=== PATIENT | male | born 1970 | race Caucasian/White ===

== ENCOUNTER 2021-01-24 17:01 | Emergency (ER) | payer SELFPAY ==
[2021-01-24 17:19] VITALS: BP 144/84; PULSE 80; RESP 16; TEMP 36.8; O2SAT 99
--- NOTE | 2021-01-24 20:17 | PC.NURSE ---
no answer x2 at triage
== END 2021-01-24 20:17 | disposition left against medical advice (07) ==
DX: Z53.21 Procedure and treatment not carried out due to patient leaving prior to being seen by health care provider (principal)
CPT/HCPCS: 99199

== ENCOUNTER 2023-04-02 22:08 | Inpatient (IN) | payer BC, SELFPAY ==
[2023-04-02] VITALS (18 sets, daily range): BP systolic 68–103; BP diastolic 47–68; PULSE 78–103; RESP 13–21; O2SAT 98–100
--- NOTE | ~2023-04-02 | CT_ITS ---
EXAMINATION: CT brain wo con INDICATION: Headache COMPARISON: None TECHNIQUE: Standard unenhanced head CT. The dose-length product (DLP) was 756.67 mGy-cm. The mA was a djusted according to patient size. Iterative reconstruction technique was employed. FINDINGS: No intracranial hemorrhage, acute infarction, or abnormal mass lesion. The ventricles are n ormal. No abnormal mass effect or midline shift. The wilson-white matter differentiation is normal. The basal cisterns are patent. The orbits are normal. There is mild mucosal thickening of the paranasal sinuses. IMPRESSION: 1. No acute intracranial abnormality. Reviewed, dictated and finalized at location F.
--- NOTE | ~2023-04-02 | XR_ITS ---
XR chest 1V portable 04/04/2023 05:34 Indication: Respiratory distress. Procedure: AP portable chest Comparison: Comparison to multiple prior studies sequentially, with oldest reviewed study dated 03/16. Findings: Endotracheal tube tip 3.9 cm above the facundo. NG tube in the stomach. Heart size normal. N o focal air space disease, pulmonary edema, pleural effusion or suspected pneumothorax. No acute osse ous abnormality. Impression: 1: No acute cardiopulmonary disease. Reviewed, dictated and finalized at location A. Impression: 1: No acute cardiopulmonary disease.
--- NOTE | ~2023-04-02 | XR_ITS ---
Portable chest x-ray Comparison: 04/02/2023 Clinical History: Tube placement Findings: Endotracheal tube and NG tube are in satisfactory positions. Probable minimal perihilar lopes ziness. Cardiomediastinal silhouette is stable. Bones and soft tissues are unremarkable. Impression: Support tubes, as above. Minimal perihilar haziness, nonspecific. Reviewed, dictated and finalized at location . Impression: Support tubes, as above. Minimal perihilar haziness, nonspecific.
--- NOTE | ~2023-04-02 | XR_ITS ---
EXAMINATION: XR abdomen gastric tube insert INDICATION: Nasogastric tube placement. TECHNIQUE: Portable AP KUB-NG at 2300 hours COMPARISON: None available FINDINGS: The nasogastric tube is in the stomach. The visualized lung bases are clear. IMPRESSION: 1. Nasogastric tube in the stomach. Reviewed, dictated and finalized at location F.
--- NOTE | ~2023-04-02 | XR_ITS ---
EXAMINATION: XR chest ET placement INDICATION: Intubation TECHNIQUE: Portable AP chest at 2258 hours COMPARISON: None available FINDINGS: The endotracheal tube ends approximately 3.7 cm above the facundo. The nasogastric tube is f ollowed as far as the stomach. Its tip is beyond the inferior margin of the radiograph. The lungs are free of acute opacities. No pleural effusion or pneumothorax. The cardiomediastinal silhouette is no rmal. IMPRESSION: 1. No acute cardiopulmonary abnormality. Support tubes in adequate position. Reviewed, dictated and finalized at location F.
--- NOTE | 2023-04-02 22:17 | PC.NURSE ---
Upon arrival to ED pt was combative and aggressive to hospital staff, police, and EMS. Soft restraints applied at 2217 to upper extremities. EDp Decided to intubate at [address] Byrd due to safety and pt not being able to protect airway. 20 of acadamte was given in the left 18 guage IV at 2220 then 100 of succ given at 2220. Soft restraints taken off at 2221 of both upper extremities. The ETT is 23 at the lip. Vital signs at 2222 were 99 HR, 100% with BVM, respirations were 25, and blood pressure was 121/75 and temperature was 97.1
[2023-04-02] MEDS: PROPOFOL IV EMULSION 100 ML 3.27 MG IV CONT (22:27)
[2023-04-02] MEDS: MIDAZOLAM 100MG/NS 100ML(*CRX) 100 MG/100 ML BAG IV CONT (22:34)
[2023-04-02] MEDS: SODIUM CHLORIDE 0.9% IV 1,000 ML 999 ML IV CONT ×3 (22:46→23:20)
[2023-04-02 22:49] LABS: Alveolar/Arterial O2 Gradient 165.7 mmHg; Fractional Inspired Oxygen 50 %; HCO3 ABG 22.4 mEq/l (22.0-26.0); Oxygen Content ABG 17.7 %vol (16.0-22.0); Oxygen Saturation ABG 98.9 % (95.0-100.0); Oxyhemoglobin 90.6 % THb (90.0-100.0); PCO2 ABG 37.3 mmHg (35.0-45.0); PO2 ABG 148.8 mmHg (80.0-100.0); PO2 FiO2 Ratio Arterial Blood 2.98 %; Total Hemoglobin 13.7 g/dL (12.0-18.0); pH ABG 7.397 (7.350-7.450)
[2023-04-02 22:50] LABS: Device VENTILATOR; Modified Allen's Test Pass; Site Drawn RIGHT RADIAL
[2023-04-02 22:51] LABS: Arterial Blood Gas PEEP 8 cmH2O; Arterial Blood Gas Tidal Volume 500 ml; Arterial Blood Gas Vent Mode CMV; Arterial Blood Gas Ventilator rate 18 /MIN
[2023-04-02] MEDS: RAPID SEQUENCE INTUBATION KIT 1 EACH (23:00)
[2023-04-02 23:04] LABS: Basophils Absolute Auto 0.1 K/mm3 (0.0-0.1); Basophils Percent Auto 0.5 % (0.2-1.2); Eosinophils Absolute Auto 0.1 K/mm3 (0-0.3); Eosinophils Percent Auto 0.9 % (0-4.4); Hematocrit 42.6 % (42.0-52.0); Hemoglobin 13.6 g/dL (14.0-18.0); Immature Granulocyte Absolute 0.05 K/mm3 (0.00-0.031); Immature Granulocyte Percent A 0.4 % (0-0.5); Lymphocytes Absolute Auto 3.03 K/mm3 (0.9-3.2); Lymphocytes Percent Auto 25.9 % (18.3-44.2); Mean Corpuscular HGB Conc 31.9 g/dl (32-36); Mean Corpuscular Volume 93.8 fl (80-100); Mean Platelet Volume 10.5 fl (7.4-10.4); Monocytes Absolute Auto 0.9 K/mm3 (0.1-0.6); Monocytes Percent Auto 7.5 % (2.6-8.5); Neutrophils Absolute Auto 7.6 K/mm3 (1.3-6.7); Neutrophils Percent Auto 64.8 % (45.5-73.1); Platelet Count Result 291 k/mm3 (150-375); Red Blood Count 4.54 M/mm3 (4.6-6.20); Red Cell Distribution Width 12.6 % (11.5-14.5); White Blood Count 11.7 K/mm3 (4.5-10.0)
[2023-04-02 23:15] LABS: Ethanol 110 mg/dL (<10)
[2023-04-02 23:17] LABS: Acetaminophen < 10 ug/mL (10-30); Alanine Aminotransferase 27 U/L (6-50); Albumin Level 4.3 g/dL (3.5-5.1); Alkaline Phosphatase 72 U/L (38-126); Anion Gap 16 mmol/L (8-16); Aspartate Amino Transferase 35 U/L (17-59); Bilirubin,Total 0.6 mg/dL (0.2-1.3); Blood Urea Nitrogen 9 mg/dL (9-20); Calcium 8.9 mg/dL (8.4-10.2); Carbon Dioxide 20 mmol/L (22-30); Chloride 101 mmol/L (98-107); Estimated CRCL calculation 83 ml/min; Estimated Glomerular Filt Rate > 60; Glucose 109 mg/dL (65-110); Potassium 3.6 mmol/L (3.4-5.0); Salicylate < 1.0 mg/dL (2-20); Sodium 137 mmol/L (137-145); Triglycerides 182 mg/dL (<150)
[2023-04-02 23:34] LABS: Appearance Urine Clear (Clear); Bacteria Urine None Seen /hpf; Bilirubin Urine Negative (Negative); Blood Urine Trace (Negative); Color Urine Yellow (Yellow); Glucose Urine UA Trace mg/dL (Negative); Hyaline Casts Urine Present /lpf; Ketones Urine Negative (Negative); Leukocyte Esterase Ur Trace LEU/UL (Negative); Nitrate Urine Negative (Negative); Protein Urine Negative (Negative); Specific Grav Ur 1.008 (1.001-1.035); Squamous Epithelial Cell Urine None seen /hpf (Few)
[2023-04-02 23:38] LABS: Barbiturate Screen Urine Negative (Negative)
[2023-04-02 23:41] LABS: Benzodiazepines Screen Urine Negative (Negative)
[2023-04-02 23:42] LABS: Add Urine Microscopic? YES
[2023-04-02 23:43] LABS: Amphetamine Screen Urine Negative (Negative); Cannabinoid Screen Urine Positive (Negative); Cocaine Screen Urine Negative (Negative); Methadone Screen Urine Negative (Negative); Opiate Screen Urine Negative (Negative); Phencyclidine Screen Urine Negative (Negative)
[2023-04-02 23:49] LABS: Influenza A QL RT-PCR Negative (Negative); Influenza B QL RT-PCR Negative (Negative); SARS-CoV-2 RNA PCR Negative (Negative)
[2023-04-03] VITALS (52 sets, daily range): BP systolic 84–120; BP diastolic 57–82; PULSE 53–102; RESP 12–23; TEMP 36.3–38.3; O2SAT 96–100; BMI 26.0
--- NOTE | 2023-04-03 | ECG_ITS ---
Measurements Intervals [place] Rate: 69 P: 41 CA: 144 QRS: 44 QRSD: 78 T: 35 QT: 453 QTc: 489 Interpretive Statements SINUS RHYTHM NONSPECIFIC T-WAVE ABNORMALITY PROLONGED QT INTERVAL NO PREVIOUS ECG AVAILABLE FOR COMPARISON Electronically Signed On 04-03-2023 7:46:16 CDT by Vega Faria MD
--- NOTE | 2023-04-03 00:19 | ED.GENADULT ---
HPI - General Adult General Chief complaint: Overdose Stated complaint: intentional OD etoh and sleeping pills Time Seen by Provider: 04/02/23 22:10 History of Present Illness HPI narrative: Patient 52-year-old gentleman who presents the emergency department with chief complaint of overdose and suicidal ideation. Per the patient's family the patient did express thoughts of harming himself drink alcohol this evening and took an overdose in medications. The patient has had prior suicide attempts and came in and was intermittently combative and noncooperative and then intermittently having snoring respirations. Related Data Home Medications Medication Instructions Recorded Confirmed aripiprazole 15 mg tablet 15 mg PO DAILY 04/03/23 04/03/23 desvenlafaxine succinate 100 mg 100 mg PO DAILY 04/03/23 04/03/23 tablet,extended release 24 hr lamotrigine 100 mg tablet 100 mg PO DAILY 04/03/23 04/03/23 Allergies Allergy/AdvReac Type Severity Reaction Status Date / Time Unable to Assess Allergy Verified 04/03/23 01:24 Review of Systems Review of Systems: A 10 system review of systems was completed on the patient and is negative except for what is stated in the HPI. Nursing and ancillary documentation was reviewed. [facility] Social History Social History Smoking status: Unknown if ever smoked Alcohol intake: current Substance use type: marijuana Spiritual care concerns: No Exam Narrative: GENERAL: Patient is acutely intoxicated noncooperative HEAD: Normocephalic, atraumatic. EYES: PERRLA and EOMI. ENT: Nares clear, no rhinorrhea or epistaxis. Mucous membranes moist. NECK: Supple. CHEST: Clear to auscultation. No respiratory distress. HEART: Regular rate and rhythm. No murmur heard. Normal peripheral pulses. ABDOMEN: Soft, nontender, nondistended, normal active bowel sounds. EXTREMITIES: Normal range of motion. No edema. SKIN: Warm, dry, no rash. NEURO: No focal deficits. Intermittent alert between snoring respirations. PSYCH: Unable to obtain Course Vital Signs Vital signs: Vital Signs Pulse Rate 92 04/02/23 22:27 Respiratory Rate 18 04/02/23 22:27 Pulse Rate 63 04/03/23 05:39 Respiratory Rate 18 04/03/23 04:15 Blood Pressure 102/68 04/03/23 04:15 Pulse Oximetry 100 04/03/23 05:39 Oxygen Delivery Mechanical Ventilation 04/03/23 05:39 Fraction of Inspired Oxygen 40 04/03/23 05:39 Procedures Intubation Intubation #1: Intubation Date: 04/03/23 Intubation Time: 00:21 Time out performed: Yes sedative: Etomidate Mg Given: 20 paralytic: Succinylcholine Mg Given: 100 Laryngoscope: Jack Assist Device Used: fiber optic device Tube Size (cm): 7.5 Method of Intubation: orotracheal Number of Attempts: 1 Tube Secured Depth (cm): 23 Tube Secured Location: lips Tube Placement Confirmation: visualized tube passing through cords, equal breath sounds bilaterally, no breath sounds over epigastrium and confirmation by capnometry Patient Tolerated Procedure: well Intubation Complications: none Medical Decision Making Vital Signs Vital Signs: Vital Signs Pulse Rate 92 04/02/23 22:27 Respiratory Rate 18 04/02/23 22:27 Pulse Rate 63 04/03/23 05:39 Respiratory Rate 18 04/03/23 04:15 Blood Pressure 102/68 04/03/23 04:15 Pulse Oximetry 100 04/03/23 05:39 Oxygen Delivery Mechanical Ventilation 04/03/23 05:39 Fraction of Inspired Oxygen 40 04/03/23 05:39 Lab Data 04/02/23 22:57 04/02/23 22:57 Labs: Lab Results 04/02/23 04/02/23 04/02/23 Range/Units 22:41 22:57 22:57 WBC 11.7 H (4.5-10.0) K/mm3 RBC 4.54 L (4.6-6.20) M/mm3 Hgb 13.6 L (14.0-18.0) g/dL Hct 42.6 (42.0-52.0) % MCV 93.8 (80-100) fl MCH 3
[2023-04-03 00:29] LABS: Magnesium 2.5 mg/dL (1.6-2.3)
--- NOTE | 2023-04-03 01:08 | ADMGEN ---
This patient, Sunday Lopez, was admitted to Intensive Care Unit-4. Patient/family oriented to hospital policies and general routines including ID bracelet, bed and alarms, visiting hours, pain management, procedures, bathroom and other care routines, personal items, smoking policy, room service/diet, and visiting hours. Information on how to activate the Rapid Response Team has been discussed. Patient/Family are encouraged to report perceived risks to care and to ask questions if they do not understand what they are told or what they should do.
[2023-04-03] MEDS: FENTANYL 2,500MCG/NS250ML(*CRX 2,500 MCG/250 ML BAG 10 MCG IV CONT (01:15)
[2023-04-03 05:37] LABS: Base Excess ABG 0.9 mEq/l (+/-2.0); Carboxyhemoglobin 0.8 % THb (0-2.0); Fractional Inspired Oxygen 40 %; HCO3 ABG 25.9 mEq/l (22.0-26.0); Methemoglobin ABG 0.2 %THb (0-1.5); Oxygen Content ABG 16.7 %vol (16.0-22.0); Oxygen Saturation ABG 97.7 % (95.0-100.0); Oxyhemoglobin 95.7 % THb (90.0-100.0); PCO2 ABG 42.6 mmHg (35.0-45.0); PO2 ABG 103.2 mmHg (80.0-100.0); PO2 FiO2 Ratio Arterial Blood 2.58 %; Reduced Hemoglobin 3.3 %THb (0-5.0); Total Hemoglobin 12.3 g/dL (12.0-18.0); pH ABG 7.401 (7.350-7.450)
[2023-04-03] MEDS: SODIUM CHLORIDE 0.9% IV 500 ML 999 ML IV CONT (05:42)
[2023-04-03] MEDS: DEXTROSE 5%/0.45% SOD CHL 1,000 ML 75 ML IV CONT ×2 (05:43→17:54)
[2023-04-03 07:58] LABS: Basophils Percent Auto 0.5 % (0.2-1.2); Eosinophils Absolute Auto 0.1 K/mm3 (0-0.3); Eosinophils Percent Auto 1.3 % (0-4.4); Hematocrit 39.6 % (42.0-52.0); Hemoglobin 12.3 g/dL (14.0-18.0); Immature Granulocyte Absolute 0.03 K/mm3 (0.00-0.031); Immature Granulocyte Percent A 0.3 % (0-0.5); Immature Platelet Fraction Pct 4.7 % (0.9-11.2); Lymphocytes Absolute Auto 2.15 K/mm3 (0.9-3.2); Mean Corpuscular HGB Conc 31.1 g/dl (32-36); Mean Corpuscular Hemoglobin 30.4 pg (26-34); Mean Platelet Volume 10.5 fl (7.4-10.4); Monocytes Absolute Auto 0.8 K/mm3 (0.1-0.6); Monocytes Percent Auto 9.8 % (2.6-8.5); Neutrophils Absolute Auto 5.4 K/mm3 (1.3-6.7); Neutrophils Percent Auto 63.1 % (45.5-73.1); Platelet Count Result 182 k/mm3 (150-375); Red Blood Count 4.04 M/mm3 (4.6-6.20); Red Cell Distribution Width 12.9 % (11.5-14.5); White Blood Count 8.6 K/mm3 (4.5-10.0)
[2023-04-03 08:12] LABS: Anion Gap 7 mmol/L (8-16); Blood Urea Nitrogen 8 mg/dL (9-20); Calcium 7.7 mg/dL (8.4-10.2); Carbon Dioxide 22 mmol/L (22-30); Chloride 108 mmol/L (98-107); Estimated CRCL calculation 94 ml/min; Estimated Glomerular Filt Rate > 60; Glucose 89 mg/dL (65-110); Magnesium 2.3 mg/dL (1.6-2.3); Phosphorus 3.3 mg/dL (2.5-4.5); Potassium 3.7 mmol/L (3.4-5.0); Sodium 137 mmol/L (137-145)
[2023-04-03 08:13] LABS: Alanine Aminotransferase 24 U/L (6-50); Albumin Level 3.3 g/dL (3.5-5.1); Alkaline Phosphatase 57 U/L (38-126); Aspartate Amino Transferase 30 U/L (17-59); Bilirubin,Total 0.5 mg/dL (0.2-1.3); Creatine Kinase 382 U/L (55-170); Total Protein 6.2 g/dL (6.3-8.2)
--- NOTE | 2023-04-03 08:29 | PM.IMHP ---
H&P: HPI History of Present Illness Date/Time: 04/03/23 08:29 Chief Complaint: Intentional overdose Narrative: 52-year-old male with past medical history significant for prior suicide attempts is presenting with suicidal ideation and intentional overdose. The patient told his family wanted to harm himself, drank a significant amount of alcohol 04/02 and then overdosed on unknown number and type of pills from his home medications. He was found to be combative and noncooperative and then later experienced sonorous respirations and was unable to protect airway. As the patient was not protecting his airway, he was intubated in the ER successfully 04/03. He is now being monitored in the ICU. Review of Systems Review of Systems: ROS unobtainable: Yes unobtainable due to endotracheal tube PMFSH Social History Social History Smoking status: Unknown if ever smoked Alcohol intake: current Substance use type: marijuana Spiritual care concerns: No Meds Home Medications and Allergies Home Medications Medication Instructions Recorded Confirmed Type aripiprazole 15 mg tablet 15 mg PO DAILY 04/03/23 04/03/23 History desvenlafaxine succinate 100 mg 100 mg PO DAILY 04/03/23 04/03/23 History tablet,extended release 24 hr lamotrigine 100 mg tablet 100 mg PO DAILY 04/03/23 04/03/23 History Allergies Allergy/AdvReac Type Severity Reaction Status Date / Time Unable to Assess Allergy Verified 04/03/23 01:24 Vital Signs Vital Signs - 24 hr 04/02/23 22:27 04/02/23 22:31 04/02/23 22:34 Temperature Pulse Rate 92 103 H 98 Respiratory Rate 18 18 18 Blood Pressure Pulse Oximetry Oxygen Delivery Fraction of Inspired Oxygen 04/02/23 22:38 04/02/23 22:38 04/02/23 22:40 Temperature Pulse Rate 91 91 89 Respiratory Rate 18 13 Blood Pressure 71/47 L Pulse Oximetry 100 Oxygen Delivery Fraction of Inspired Oxygen 04/02/23 22:46 04/02/23 22:47 04/02/23 22:58 Temperature Pulse Rate 87 86 98 Respiratory Rate 18 18 Blood Pressure 68/49 L Pulse Oximetry 98 Oxygen Delivery Mechanical Ventilation Fraction of Inspired Oxygen 50 04/02/23 23:19 04/02/23 22:48 04/02/23 23:00 Temperature Pulse Rate 79 87 86 Respiratory Rate 18 19 14 Blood Pressure Pulse Oximetry Oxygen Delivery Fraction of Inspired Oxygen 04/02/23 23:01 04/02/23 23:06 04/02/23 23:11 Temperature Pulse Rate 86 82 80 Respiratory Rate 18 18 16 Blood Pressure 75/52 L 77/52 L 79/55 L Pulse Oximetry Oxygen Delivery Fraction of Inspired Oxygen 04/02/23 23:15 04/02/23 23:16 04/02/23 23:21 Temperature Pulse Rate 84 83 79 Respiratory Rate 14 21 H 18 Blood Pressure 103/68 94/63 L Pulse Oximetry Oxygen Delivery Fraction of Inspired Oxygen 04/03/23 00:09 04/03/23 01:15 04/03/23 03:00 Temperature Pulse Rate 68 102 H 74 Respiratory Rate 18 Blood Pressure Pulse Oximetry 98 100 Oxygen Delivery Mechanical Ventilation Mechanical Ventilation Fraction of Inspired Oxygen 50 50 04/03/23 02:00 04/03/23 04:00 04/03/23 04:00 Temperature Pulse Rate 68 66 Respiratory Rate 18 Blood Pressure Pulse Oximetry 100 Oxygen Delivery Mechanical Ventilation Fraction of Inspired Oxygen 40 40 04/03/23 01:15 04/03/23 04:00 04/02/23 23:22 Temperature Pulse Rate 73 67 78 Respiratory Rate 16 18 Blood Pressure Pulse Oximetry Oxygen Delivery Fraction of Inspired Oxygen 04/03/23 00:03 04/03/23 00:04 04/03/23 00:11 Temperature Pulse Rate 71 70 68 Respiratory Rate 16 18 17 Blood Pressure 102/65 97/63 L Pulse Oximetry Oxygen Delivery Fraction of Inspired Oxygen 04/03/23 00:15 04/03/23 00:32 04/03/23 00:36 Temperature Pulse Rate 71 70 67 Respiratory Rate 18 18 18 Blood Pressure 91/62 L Pulse Oximetry Oxygen Delivery Fraction
--- NOTE | 2023-04-03 08:35 | WPDCNINT ---
Assessment and Plan Assessment and plan (1) Respiratory failure: Qualifiers: Respiratory failure complication: unspecified whether with hypoxia or hypercapnia Code(s): J96.90 - Respiratory failure, unspecified, unspecified whether with hypoxia or hypercapnia Status: Acute Assessment and Plan: Patient presented with overdose of his medications, was combative, noncooperative and had sonorous respirations -patient was intubated on 04/03/2023 in the ER -currently on CMV mode of ventilation, peep of 8, 35% FiO2 -chest x-ray and ABGs reviewed -patient on fentanyl and Versed infusion, maintain RASS of 0 to -2, daily sedation vacation -I have asked the bedside RN to decrease his sedation and try to wake up the patient. If he is awake enough my try to put him on SBT and evaluate for extubation (2) Drug overdose: Qualifiers: Encounter type: initial encounter Code(s): T50.901A - Poisoning by unspecified drugs, medicaments and biological substances, accidental (unintentional), initial encounter Status: Acute Assessment and Plan: Patient overdosed on unknown amount of home medications (Abilify, desvenlafaxine, lamotrigine) -patient has been given adequate amount of IV fluids -will repeat another L of IV fluid bolus this morning -continue maintenance IV fluids (3) Suicide attempt by multiple drug overdose: Qualifiers: Encounter type: initial encounter Qualified Code(s): T50.912A - Poisoning by multiple unspecified drugs, medicaments and biological substances, intentional self-harm, initial encounter Code(s): T50.912A - Poisoning by multiple unspecified drugs, medicaments and biological substances, intentional self-harm, initial encounter Status: Acute Assessment and Plan: According the records patient's family did say that he was concerns of harming himself and then drank alcohol and overdosed on his home medications -continue suicide precautions -will require care coordination and crisis management once he is extubated and medically stable Plan DVT prophylaxis: SCDs and Lovenox Stress ulcer prophylaxis: Protonix Nutrition: Will start tube feeds Code Status: Full code Critical Care Time Spent: 48 minutes Due to a high probability of clinically significant, life threatening deterioration, the patient required my highest level of preparedness to intervene emergently and I personally spent this critical care time directly and personally managing the patient. This critical care time included obtaining a history; examining the patient; pulse oximetry; ordering and review of studies; arranging urgent treatment with development of a management plan; evaluation of patient's response to treatment; frequent reassessment; and discussions with other providers. It was exclusive of separately billable procedures and treating other patients and teaching time. Please see Assessment and Plan section and the rest of the note for further information on patient assessment and treatment This dictation may have been done utilizing a voice recognition system. Attempts have been made to correct errors. However, there may be uncorrected grammatical, spelling, and recognitions errors present. Working Supervisor Consult Note Consult date: 04/03/23 Reason for consult: Acute respiratory failure, intentional overdose, alcohol use HPI: Sunday Lopez is a 52 year old male with past medical history of depression, bipolar presented the ED on 04/03/2023 with overdose, suicidal behavior, alcohol use. Patient expressed to the family that he was having thoughts of harming himself, drank alcohol on the evening of 04/02 and took an overdose of unknown amount of pills from his medication list. Patient was found to be combative, noncooperative with intermittent sonorous respirations for which patient had to be intubated the ER was placed on propofol and Versed, which dropped his blood pressures, propofol
[2023-04-03] MEDS: FOLIC ACID 1 MG/0.2 ML INJ IV PUSH (08:38)
[2023-04-03] MEDS: THIAMINE HCL 200 MG/2 ML VIAL 100 MG IV PUSH (08:38)
[2023-04-03] MEDS: MINERAL OIL/WHITE PETROLATUM OINTMENT 1 APPLIC EACH EYE ×2 (08:38→20:58)
[2023-04-03] MEDS: ENOXAPARIN 40 MG/0.4 ML SYRINGE SUB-Q (08:38)
[2023-04-03] MEDS: PANTOPRAZOLE SODIUM IV 40 MG VIAL IV PUSH ×2 (08:38→20:58)
[2023-04-03] MEDS: LACTATED RINGERS 1,000 ML 999 ML IV CONT (08:53)
--- NOTE | 2023-04-03 10:24 | ECG_ITS ---
Measurements Intervals [place] Rate: 66 P: 124 VT: 143 QRS: 128 QRSD: 95 T: 148 QT: 429 QTc: 450 Interpretive Statements SINUS RHYTHM ARM LEADS REVERSED [INVERTED P AND QRS IN I] ATYPICAL ECG INTERPRETATION BASED ON A DEFAULT AGE OF 40 YEARS COMPARED TO ECG 04/03/2023 00:15:58 PROLONGED QT INTERVAL NO LONGER PRESENT Electronically Signed On 04-03-2023 13:35:31 CDT by Vega Faria MD
[2023-04-03] MEDS: POTASSIUM CHLORIDE 20 MEQ PACKET (FOR LIQUID) 40 MEQ FEED TUBE (10:34)
--- NOTE | 2023-04-03 11:43 | ECG_ITS ---
Measurements Intervals [place] Rate: 73 P: 41 IL: 142 QRS: 19 QRSD: 86 T: 15 QT: 397 QTc: 440 Interpretive Statements SINUS RHYTHM POSSIBLE INFERIOR MYOCARDIAL INFARCTION [30 ms Q WAVE IN II/aVF], PROBABLY OLD WITH POSTERIOR EXTENSION [PROMINENT R WAVE IN V1 COMPARED TO ECG 04/03/2023 10:38:14 NO SIGNIFICANT CHANGES Electronically Signed On 04-03-2023 13:36:17 CDT by Vega Faria MD
[2023-04-03] MEDS: DOXYCYCLINE 100 MG/NS 100 ML 100 MG/100 ML BAG IVPB ×2 (11:45→20:58)
[2023-04-03] MEDS: cefTRIAXone 2 GM/NS 100 ML 2 GM/100 ML BAG IVPB (11:46)
--- NOTE | 2023-04-03 11:48 | PCDIET ---
Paitent is NPO. Tube feeding recommendations: Vital AF 1.2 at 20 ml/hr advance by 10 ml q 4 hours to goal rate of 70 ml/hr. Goal rate providing 1848 kcals/116 gms protein/1249 ml water. Flush 30 ml q 4 hours. Will continue to monitor.
[2023-04-03] MEDS: ACETAMINOPHEN 325 MG TABLET 650 MG PO (22:21)
[2023-04-03] MEDS: FENTANYL 2,500MCG/NS250ML(*CRX 2,500 MCG/250 ML BAG 12.5 MCG IV CONT (23:15)
[2023-04-04] VITALS (32 sets, daily range): BP systolic 107–157; BP diastolic 64–107; PULSE 60–100; RESP 12–24; TEMP 37.5–38.2; O2SAT 92–100
[2023-04-04 00:54] LABS: Glucose Point of Care 97 mg/dl (65-105)
[2023-04-04] MEDS: MIDAZOLAM 100MG/NS 100ML(*CRX) 100 MG/100 ML BAG IV CONT (02:38)
[2023-04-04 05:39] LABS: Alveolar/Arterial O2 Gradient 88.5 mmHg; Base Excess ABG 0.5 mEq/l (+/-2.0); Carboxyhemoglobin 0.3 % THb (0-2.0); Fractional Inspired Oxygen 30 %; HCO3 ABG 25.2 mEq/l (22.0-26.0); Methemoglobin ABG 0.2 %THb (0-1.5); Oxygen Content ABG 18.4 %vol (16.0-22.0); Oxygen Saturation ABG 95.5 % (95.0-100.0); Oxyhemoglobin 94.4 % THb (90.0-100.0); PO2 ABG 77.2 mmHg (80.0-100.0); PO2 FiO2 Ratio Arterial Blood 2.57 %; Reduced Hemoglobin 5.1 %THb (0-5.0); Total Hemoglobin 13.8 g/dL (12.0-18.0); pH ABG 7.407 (7.350-7.450)
[2023-04-04 05:40] LABS: Arterial Blood Gas PEEP 8 cmH2O; Arterial Blood Gas Vent Mode CMV; Arterial Blood Gas Ventilator rate 18 /MIN; Device VENTILATOR; Modified Allen's Test Unable to perform; Site Drawn RIGHT RADIAL
[2023-04-04 05:41] LABS: Arterial Blood Gas Tidal Volume 500 ml
--- NOTE | 2023-04-04 08:10 | PC.NURSE ---
Wean trial initiated,labs drawn.
[2023-04-04] MEDS: DEXTROSE 5%/0.45% SOD CHL 1,000 ML 75 ML IV CONT (08:17)
--- NOTE | 2023-04-04 08:22 | WPDINTPN ---
Progress Note: A&P Assessment and Plan (1) Respiratory failure: Qualifiers: Respiratory failure complication: unspecified whether with hypoxia or hypercapnia Code(s): J96.90 - Respiratory failure, unspecified, unspecified whether with hypoxia or hypercapnia Status: Acute Assessment and Plan: Patient presented with overdose of his medications, was combative, noncooperative and had sonorous respirations -patient was intubated on 04/03/2023 in the ER -currently on CMV mode of ventilation, peep of 8, 30% FiO2 -chest x-ray and ABGs reviewed -patient on fentanyl and Versed infusion, maintain RASS of 0 to -2, daily sedation vacation -patient has been placed on ASV, -sedation was held, patient placed on SBT, -patient successfully extubated on 04/04 (2) Drug overdose: Qualifiers: Encounter type: initial encounter Code(s): T50.901A - Poisoning by unspecified drugs, medicaments and biological substances, accidental (unintentional), initial encounter Status: Acute Assessment and Plan: Patient overdosed on unknown amount of home medications (Abilify, desvenlafaxine, lamotrigine) -patient has been given adequate amount of IV fluids -poison control was notified, seen in EKG showed improvement in his QTC -continue maintenance IV fluids due to elevation in his CPK level, will also give 1 L bolus (3) Suicide attempt by multiple drug overdose: Qualifiers: Encounter type: initial encounter Qualified Code(s): T50.912A - Poisoning by multiple unspecified drugs, medicaments and biological substances, intentional self-harm, initial encounter Code(s): T50.912A - Poisoning by multiple unspecified drugs, medicaments and biological substances, intentional self-harm, initial encounter Status: Acute Assessment and Plan: According the records patient's family did say that he was concerns of harming himself and then drank alcohol and overdosed on his home medications -continue suicide precautions -will require care coordination and crisis management once he is extubated and medically stable Plan DVT prophylaxis: SCDs Stress ulcer prophylaxis: Protonix Nutrition: Patient is could extubated this morning, will wait for couple of hours before trying ice chips and clear liquids Code Status: Full code Critical Care Time Spent: 33 minutes Due to a high probability of clinically significant, life threatening deterioration, the patient required my highest level of preparedness to intervene emergently and I personally spent this critical care time directly and personally managing the patient. This critical care time included obtaining a history; examining the patient; pulse oximetry; ordering and review of studies; arranging urgent treatment with development of a management plan; evaluation of patient's response to treatment; frequent reassessment; and discussions with other providers. It was exclusive of separately billable procedures and treating other patients and teaching time. Please see Assessment and Plan section and the rest of the note for further information on patient assessment and treatment This dictation may have been done utilizing a voice recognition system. Attempts have been made to correct errors. However, there may be uncorrected grammatical, spelling, and recognitions errors present. Subjective Date/time seen: 04/04/23 08:22 Interval history: Reason for consult: Acute respiratory failure, intentional overdose, alcohol use 04/04/2023: Patient seen and examined in the ICU, remains intubated on CMV mode of ventilation, peep of 8 and 30% FiO2. Patient is sedated with fentanyl and Versed infusion. Patient opens his eyes, is awake, nods to questions and follows simple commands in all extremities, denies any pain at this time. Patient is on maintenance IV fluids. Urine output has been adequate, hemodynamically stable with low-grade fevers Review of Systems
[2023-04-04] MEDS: THIAMINE HCL 200 MG/2 ML VIAL 100 MG IV PUSH (08:25)
[2023-04-04] MEDS: FOLIC ACID 1 MG/0.2 ML INJ IV PUSH (08:25)
[2023-04-04] MEDS: PANTOPRAZOLE SODIUM IV 40 MG VIAL IV PUSH ×2 (08:25→21:08)
[2023-04-04] MEDS: DOXYCYCLINE 100 MG/NS 100 ML 100 MG/100 ML BAG IVPB ×2 (08:25→21:08)
[2023-04-04 08:26] LABS: Basophils Percent Auto 0.2 % (0.2-1.2); Eosinophils Absolute Auto 0.1 K/mm3 (0-0.3); Eosinophils Percent Auto 0.9 % (0-4.4); Hematocrit 40.9 % (42.0-52.0); Hemoglobin 13.1 g/dL (14.0-18.0); Immature Granulocyte Absolute 0.03 K/mm3 (0.00-0.031); Immature Granulocyte Percent A 0.3 % (0-0.5); Lymphocytes Absolute Auto 1.91 K/mm3 (0.9-3.2); Lymphocytes Percent Auto 19.4 % (18.3-44.2); Mean Corpuscular Hemoglobin 30.4 pg (26-34); Mean Corpuscular Volume 94.9 fl (80-100); Monocytes Absolute Auto 0.8 K/mm3 (0.1-0.6); Monocytes Percent Auto 8.4 % (2.6-8.5); Neutrophils Percent Auto 70.8 % (45.5-73.1); Platelet Count Result 207 k/mm3 (150-375); Red Blood Count 4.31 M/mm3 (4.6-6.20); Red Cell Distribution Width 12.7 % (11.5-14.5); White Blood Count 9.8 K/mm3 (4.5-10.0)
[2023-04-04] MEDS: MINERAL OIL/WHITE PETROLATUM OINTMENT 1 APPLIC EACH EYE (08:27)
[2023-04-04 08:37] LABS: INR 1.1; Prothrombin Time 14.2 Seconds (11.1-14.7)
[2023-04-04 08:38] LABS: Partial Thromboplastin Time 33.1 SECONDS (22.3-36.8)
[2023-04-04 08:41] LABS: Lactic Acid Reflex 1.3 mmol/L (0.7-2.0)
[2023-04-04 08:42] LABS: Alanine Aminotransferase 30 U/L (6-50); Albumin Level 3.5 g/dL (3.5-5.1); Alkaline Phosphatase 68 U/L (38-126); Anion Gap 3 mmol/L (8-16); Aspartate Amino Transferase 50 U/L (17-59); Bilirubin,Total 0.5 mg/dL (0.2-1.3); Blood Urea Nitrogen 7 mg/dL (9-20); Calcium 8.8 mg/dL (8.4-10.2); Carbon Dioxide 28 mmol/L (22-30); Chloride 103 mmol/L (98-107); Creatine Kinase 1387 U/L (55-170); Estimated CRCL calculation 94 ml/min; Estimated Glomerular Filt Rate > 60; Glucose 101 mg/dL (65-110); Magnesium 1.8 mg/dL (1.6-2.3); Phosphorus 2.2 mg/dL (2.5-4.5); Potassium 3.5 mmol/L (3.4-5.0); Sodium 134 mmol/L (137-145)
[2023-04-04] MEDS: dexmedeTOMIDine 400 MCG/100 ML 400 MCG/100 ML BAG IV CONT (08:50)
--- NOTE | 2023-04-04 09:44 | PC.NURSE ---
Extubated at 0928 to room air. Reviewed suicide precautions and policy with patient. Patient verbalized understanding.
[2023-04-04] MEDS: ENOXAPARIN 40 MG/0.4 ML SYRINGE SUB-Q (09:54)
[2023-04-04] MEDS: LACTATED RINGERS 1,000 ML 999 ML IV CONT (10:32)
[2023-04-04] MEDS: POTASSIUM CHLORIDE INJ 40 MEQ in SODIUM CHLORIDE 0.9% IV 500 ML 130 MEQ IVPB (11:15)
--- NOTE | 2023-04-04 12:04 | PC.NURSE ---
Poison control updated on patient condition and vitals. Consumer Lending Manager noted case would be closed at this time.
[2023-04-04] MEDS: cefTRIAXone 2 GM/NS 100 ML 2 GM/100 ML BAG IVPB (13:04)
--- NOTE | 2023-04-04 14:29 | PC.NURSE ---
Patient asked RN to contact marzena Mckeon. RN contacted Mike and patient able to speak to his friend via speaker phone.
[2023-04-04] MEDS: dexmedeTOMIDine 400 MCG/100 ML 400 MCG/100 ML BAG 10.5 MCG IV CONT (18:00)
[2023-04-04] MEDS: DEXTROSE 5%/0.45% SOD CHL 1,000 ML 100 ML IV CONT (21:07)
[2023-04-05] VITALS (8 sets, daily range): BP systolic 110–140; BP diastolic 64–95; PULSE 60–87; RESP 13–31; TEMP 37.3–37.6; O2SAT 94–98
[2023-04-05 06:35] LABS: Basophils Percent Auto 0.4 % (0.2-1.2); Eosinophils Absolute Auto 0.1 K/mm3 (0-0.3); Eosinophils Percent Auto 1.1 % (0-4.4); Hematocrit 42.1 % (42.0-52.0); Hemoglobin 13.7 g/dL (14.0-18.0); Immature Granulocyte Absolute 0.03 K/mm3 (0.00-0.031); Immature Granulocyte Percent A 0.3 % (0-0.5); Lymphocytes Absolute Auto 1.54 K/mm3 (0.9-3.2); Mean Corpuscular HGB Conc 32.5 g/dl (32-36); Mean Corpuscular Volume 92.3 fl (80-100); Mean Platelet Volume 9.7 fl (7.4-10.4); Monocytes Absolute Auto 0.6 K/mm3 (0.1-0.6); Monocytes Percent Auto 5.6 % (2.6-8.5); Neutrophils Percent Auto 77.6 % (45.5-73.1); Platelet Count Result 258 k/mm3 (150-375); Red Blood Count 4.56 M/mm3 (4.6-6.20); Red Cell Distribution Width 12.2 % (11.5-14.5); White Blood Count 10.3 K/mm3 (4.5-10.0)
[2023-04-05 06:52] LABS: Alanine Aminotransferase 31 U/L (6-50); Albumin Level 3.6 g/dL (3.5-5.1); Alkaline Phosphatase 66 U/L (38-126); Anion Gap 7 mmol/L (8-16); Aspartate Amino Transferase 55 U/L (17-59); Bilirubin,Total 0.6 mg/dL (0.2-1.3); Blood Urea Nitrogen 7 mg/dL (9-20); Carbon Dioxide 25 mmol/L (22-30); Chloride 108 mmol/L (98-107); Estimated CRCL calculation 94 ml/min; Estimated Glomerular Filt Rate > 60; Glucose 114 mg/dL (65-110); Phosphorus 3.3 mg/dL (2.5-4.5); Potassium 3.8 mmol/L (3.4-5.0); Sodium 140 mmol/L (137-145)
--- NOTE | 2023-04-05 07:59 | WPDINTPN ---
Progress Note: A&P Assessment and Plan (1) Respiratory failure: Qualifiers: Respiratory failure complication: unspecified whether with hypoxia or hypercapnia Code(s): J96.90 - Respiratory failure, unspecified, unspecified whether with hypoxia or hypercapnia Status: Acute Assessment and Plan: Patient presented with overdose of his medications, was combative, noncooperative and had sonorous respirations -patient was intubated on 04/03/2023 in the ER -04/04/2023 successfully extubated -currently on room air with good O2 sats (2) Drug overdose: Qualifiers: Encounter type: initial encounter Code(s): T50.901A - Poisoning by unspecified drugs, medicaments and biological substances, accidental (unintentional), initial encounter Status: Acute Assessment and Plan: Patient overdosed on unknown amount of home medications (Abilify, desvenlafaxine, lamotrigine) -patient has been given adequate amount of IV fluids -poison control was notified, seen in EKG showed improvement in his QTC -will check CK level -on maintenance IV fluids (3) Suicide attempt by multiple drug overdose: Qualifiers: Encounter type: initial encounter Qualified Code(s): T50.912A - Poisoning by multiple unspecified drugs, medicaments and biological substances, intentional self-harm, initial encounter Code(s): T50.912A - Poisoning by multiple unspecified drugs, medicaments and biological substances, intentional self-harm, initial encounter Status: Acute Assessment and Plan: According the records patient's family did say that he was concerns of harming himself and then drank alcohol and overdosed on his home medications -continue suicide precautions -patient is medically stable, will have care coordination and crisis management evaluate the patient Plan DVT prophylaxis: SCDs Stress ulcer prophylaxis: Protonix Nutrition: Heart healthy diet Code Status: Full code Critical Care Time Spent: 31 minutes Due to a high probability of clinically significant, life threatening deterioration, the patient required my highest level of preparedness to intervene emergently and I personally spent this critical care time directly and personally managing the patient. This critical care time included obtaining a history; examining the patient; pulse oximetry; ordering and review of studies; arranging urgent treatment with development of a management plan; evaluation of patient's response to treatment; frequent reassessment; and discussions with other providers. It was exclusive of separately billable procedures and treating other patients and teaching time. Please see Assessment and Plan section and the rest of the note for further information on patient assessment and treatment This dictation may have been done utilizing a voice recognition system. Attempts have been made to correct errors. However, there may be uncorrected grammatical, spelling, and recognitions errors present. Subjective Date/time seen: 04/05/23 07:59 Interval history: Reason for consult: Acute respiratory failure, intentional overdose, alcohol use 04/04: Extubated 04/05/2023: Patient seen and examined in the ICU, is on suicide precautions, extubated yesterday, currently on room air with good O2 sats. Urine output has been good, afebrile, hemodynamically stable, denies chest shortness of breath, abdominal pain, nausea, vomiting. He says probably took 3 pills of doxepin and had alcohol, and does not remember anything after that. When asked if he took more pills he is unsure. Patient stated that he has been undergoing some stress these days. Review of Systems Review of Systems: ROS unobtainable: Yes unobtainable due to endotracheal tube and unobtainable due to mental status Exam Narrative: General: Patient is awake, alert in no distress HEENT:? Pupils are equal and reactive, sclera is clear, Neck:? Supple, no c
[2023-04-05] MEDS: PANTOPRAZOLE SODIUM IV 40 MG VIAL IV PUSH (08:09)
[2023-04-05] MEDS: THIAMINE HCL 200 MG/2 ML VIAL 100 MG IV PUSH (08:09)
[2023-04-05] MEDS: DOXYCYCLINE 100 MG/NS 100 ML 100 MG/100 ML BAG IVPB (08:09)
[2023-04-05] MEDS: FOLIC ACID 1 MG/0.2 ML INJ IV PUSH (08:09)
[2023-04-05] MEDS: ENOXAPARIN 40 MG/0.4 ML SYRINGE SUB-Q (08:09)
[2023-04-05 08:32] LABS: Creatine Kinase 1110 U/L (55-170)
--- NOTE | 2023-04-05 12:06 | PM.IMPN ---
Progress Note: A&P Assessment and Plan (1) Respiratory failure: Qualifiers: Respiratory failure complication: unspecified whether with hypoxia or hypercapnia Code(s): J96.90 - Respiratory failure, unspecified, unspecified whether with hypoxia or hypercapnia Status: Acute Assessment and Plan: Patient presented with overdose of his medications, was combative, noncooperative and had sonorous respirations -patient was intubated on 04/03/2023 in the ER -04/04/2023 successfully extubated -currently on room air with good O2 sats (2) Drug overdose: Qualifiers: Encounter type: initial encounter Code(s): T50.901A - Poisoning by unspecified drugs, medicaments and biological substances, accidental (unintentional), initial encounter Status: Acute Assessment and Plan: Patient overdosed on unknown amount of home medications (Abilify, desvenlafaxine, lamotrigine) -patient has been given adequate amount of IV fluids -poison control was notified, seen in EKG showed improvement in his QTC -will check CK level, trending down -on maintenance IV fluids (3) Suicide attempt by multiple drug overdose: Qualifiers: Encounter type: initial encounter Qualified Code(s): T50.912A - Poisoning by multiple unspecified drugs, medicaments and biological substances, intentional self-harm, initial encounter Code(s): T50.912A - Poisoning by multiple unspecified drugs, medicaments and biological substances, intentional self-harm, initial encounter Status: Acute Assessment and Plan: According the records patient's family did say that he was concerns of harming himself and then drank alcohol and overdosed on his home medications -continue suicide precautions -patient is medically stable, will have care coordination and crisis management evaluate the patient Plan DVT prophylaxis: SCDs Stress ulcer prophylaxis: Protonix Nutrition: Heart healthy diet Code Status: Full code Subjective Date/time seen: 04/05/23 12:06 Interval history: 52-year-old male with past medical history significant for prior suicide attempts is presenting with suicidal ideation and intentional overdose. Initially intubated in the ER, extubated 04/04. No overnight events noted. No chest pain or shortness of breath. No nausea, vomiting or diarrhea. No fevers or chills. Patient denies suicidal ideation. Review of Systems Review of Systems: 12 point review of systems was assessed and was negative except as noted in the HPI Exam Narrative: General: No acute distress, alert and oriented per baseline HEENT: Atraumatic, normocephalic, mucous membranes moist CV: Regular rate and rhythm, S1, S2 Lungs: Clear to auscultation bilaterally, no rales or crackles noted, no wheezes, good air entry Abdomen: Soft, nontender, nondistended Extremities: Normal to inspection Skin: No rashes noted, no lesions or wounds seen Psych: Euthymic, normal affect Objective Data Vital Signs Vital Signs: Vital Signs - 24 hr 04/04/23 14:00 04/04/23 14:00 04/04/23 14:00 Temperature 100.2 F H Pulse Rate 82 82 82 Respiratory Rate 17 17 Blood Pressure 150/89 H Pulse Oximetry 98 Oxygen Delivery 04/04/23 16:00 04/04/23 16:00 04/04/23 16:00 Temperature 99.8 F H Pulse Rate 63 62 Respiratory Rate 20 Blood Pressure 151/107 H Pulse Oximetry 92 94 Oxygen Delivery Room Air 04/04/23 16:00 04/04/23 18:00 04/04/23 18:00 Temperature Pulse Rate 60 69 69 Respiratory Rate 20 12 Blood Pressure Pulse Oximetry Oxygen Delivery 04/04/23 18:00 04/04/23 20:00 04/04/23 20:01 Temperature 99.6 F 99.5 F Pulse Rate 69 62 Respiratory Rate 12 16 Blood Pressure 108/74 113/77 Pulse Oximetry 98 98 Oxygen Delivery Room Air 04/04/23 22:01 04/04/23 20:00 04/04/23 22:00 Temperature 99.5 F Pulse Rate 63 62 63 Respiratory Rate 19 Blood Pressure 109/7
--- NOTE | 2023-04-05 12:26 | PC.NURSE ---
Crisis team to bedside.
--- NOTE | 2023-04-05 13:01 | PM.DS ---
DS: Admitting Diagnosis Discharge Date 04/05/2023 Admitting Diagnosis Altered mental status DS: Discharge Diagnosis Discharge Diagnosis (1) Respiratory failure: Qualifiers: Respiratory failure complication: unspecified whether with hypoxia or hypercapnia Code(s): J96.90 - Respiratory failure, unspecified, unspecified whether with hypoxia or hypercapnia Status: Acute Assessment and Plan: Patient presented with overdose of his medications, was combative, noncooperative and had sonorous respirations -patient was intubated on 04/03/2023 in the ER -04/04/2023 successfully extubated -currently on room air with good O2 sats (2) Drug overdose: Qualifiers: Encounter type: initial encounter Code(s): T50.901A - Poisoning by unspecified drugs, medicaments and biological substances, accidental (unintentional), initial encounter Status: Acute Assessment and Plan: Patient overdosed on unknown amount of home medications (Abilify, desvenlafaxine, lamotrigine) -patient has been given adequate amount of IV fluids -poison control was notified, seen in EKG showed improvement in his QTC -will check CK level, trending down -on maintenance IV fluids (3) Suicide attempt by multiple drug overdose: Qualifiers: Encounter type: initial encounter Qualified Code(s): T50.912A - Poisoning by multiple unspecified drugs, medicaments and biological substances, intentional self-harm, initial encounter Code(s): T50.912A - Poisoning by multiple unspecified drugs, medicaments and biological substances, intentional self-harm, initial encounter Status: Acute Assessment and Plan: According the records patient's family did say that he was concerns of harming himself and then drank alcohol and overdosed on his home medications -continue suicide precautions -patient is medically stable, will have care coordination and crisis management evaluate the patient Plan DVT prophylaxis: SCDs Stress ulcer prophylaxis: Protonix Nutrition: Heart healthy diet Code Status: Full code DS: Summary Hospital Course Hospital Course: 52-year-old male with past medical history significant for prior suicide attempts is presenting with suicidal ideation and intentional overdose.? Initially intubated in the ER, extubated 04/04. Patient presented with overdose of his medications, was combative, noncooperative and had sonorous respirations -patient was intubated on 04/03/2023 in the ER -04/04/2023 successfully extubated -currently on room air with good O2 sats Patient overdosed on unknown amount of home medications (Abilify, desvenlafaxine, lamotrigine) -patient has been given adequate amount of IV fluids -poison control was notified, seen in EKG showed improvement in his QTC -will check CK level, trending down -on maintenance IV fluids According the records patient's family did say that he was concerns of harming himself and then drank alcohol and overdosed on his home medications -continue suicide precautions -patient is medically stable, will have care coordination and crisis management evaluate the patient Crisis deemed patient stable for discharge with outpatient follow-up. Please see above and med rec for details. Contracted for safety prior to discharge. Time Spent with Patient Time attestation: Total time spent providing and/or coordinating discharge services: Exam Narrative: General: No acute distress, alert and oriented per baseline HEENT: Atraumatic, normocephalic, mucous membranes moist CV: Regular rate and rhythm, S1, S2 Lungs: Clear to auscultation bilaterally, no rales or crackles noted, no wheezes, good air entry Abdomen: Soft, nontender, nondistended Extremities: Normal to inspection Skin: No rashes noted, no lesions or wounds seen Psych: Euthymic, normal affect DS: Data Data Completed and Pending Labs on day of discharge: Labs from last 24 siobhan
[2023-04-07 09:06] LABS: Arterial Blood Gas PEEP 8 cmH2O; Arterial Blood Gas Tidal Volume 500 ml; Arterial Blood Gas Vent Mode CMV; Arterial Blood Gas Ventilator rate 18 /MIN; Device VENTILATOR
== END 2023-04-05 13:25 | disposition home or self-care (01) | DRG 917 ==
LOC: ANHED 22:31 → ANHICU 04-03 01:00
PROVIDERS: Internal Medicine; Admitting Provider Internal Medicine; Emergency Provider Emergency Medicine; Visit Provider Student in an Organized Health Care Education/Training Program
DX: T43.592A Poisoning by other antipsychotics and neuroleptics, intentional self-harm, initial encounter (principal); J96.01 Acute respiratory failure with hypoxia; R45.851 Suicidal ideations; T43.212A Poisoning by selective serotonin and norepinephrine reuptake inhibitors, intentional self-harm, initial encounter; T42.6X2A Poisoning by other antiepileptic and sedative-hypnotic drugs, intentional self-harm, initial encounter; F10.929 Alcohol use, unspecified with intoxication, unspecified; Y90.5 Blood alcohol level of 100-119 mg/100 ml; Z20.822 Contact with and (suspected) exposure to COVID-19; F12.90 Cannabis use, unspecified, uncomplicated; F31.9 Bipolar disorder, unspecified
CPT/HCPCS: 31500; 36415; 36600; 70450; 71045; 80053; 80307; 81001; 82375; 82550; 82805; 82948; 83050; 83605; 83735; 84100; 84443; 84478; 85025; 85055; 85610; 85730; 87086; 87636; 93005; 94003; 96361; 96365; 96367; 99285; A9270; C9113; G0378; J0330; J0696; J1650; J2250; J2704; J3010; J3411; J3480; J7030; J7040; J7120